=== PATIENT | male | born 1990 | race Caucasian/White ===

== ENCOUNTER 2020-03-13 12:25 | Outpatient (CLI) | payer BC ==
[2020-03-13] MEDS ORDERED: LIDOCAINE 1%, 10ML ONE ×2 (12:51→13:29)
[2020-03-13] MEDS ORDERED: BUPIVACAINE/PF 0.5% ONE (12:51)
[2020-03-13] MEDS ORDERED: ROPivacaine/PF 0.2%, 10 ML ONE (12:51)
[2020-03-13] MEDS ORDERED: OMNIPAQUE 300 MG/ML, 10ML VIAL ONE (13:00)
[2020-03-13] MEDS ORDERED: GADOBUTROL 10 MMOL/10 ML VIAL ONE (13:00)
== END 2020-03-13 23:59 | disposition home or self-care (01) ==
LOC: RAD 12:25
PROVIDERS: ATTEND Physician Assistant Surgical
DX: G89.29 Other chronic pain (principal); M25.511 Pain in right shoulder; M25.311 Other instability, right shoulder; M24.011 Loose body in right shoulder
CPT/HCPCS: 23350; 73040; 73222; A9585; J3490; Q9967; J2795

== ENCOUNTER 2020-03-30 12:05 | Outpatient (CLI) | payer BC | END 2020-03-30 23:59 | disposition home or self-care (01) | LOC: RAD 12:05 | PROVIDERS: ATTEND Physician Assistant Surgical | DX: M21.821 Other specified acquired deformities of right upper arm (principal); M94.8X1 Other specified disorders of cartilage, shoulder; M25.711 Osteophyte, right shoulder; M24.011 Loose body in right shoulder; M25.311 Other instability, right shoulder ==